=== PATIENT | male | born 1995 | race Caucasian/White ===

== ENCOUNTER 2020-09-10 09:29 | Outpatient (CLI) | payer OTHER, SELFPAY ==
--- NOTE | ~2020-09-10 | US_ITS ---
US breast LT limited DATE: 09/10/2020 10:12 INDICATION: Left gynecomastia TECHNIQUE: Real-time imaging of the complete left breast COMPARISON: None FINDINGS: No left breast mass or abnormal shadowing or any left breast fibroglandular stroma is ident ified. IMPRESSION: Negative examination Reviewed, dictated and finalized at [facility]. Reviewed, dictated and finalized at [facility]. NEERING CLERK IMPRESSION: Negative examination
== END 2020-09-10 09:30 | disposition home or self-care (01) ==
PROVIDERS: PCP Family Medicine; Visit Provider Family Medicine
DX: N62 Hypertrophy of breast (principal)
CPT/HCPCS: 76642